=== PATIENT | male | born 1980 | race Caucasian/White ===

== ENCOUNTER 2020-01-06 09:27 | Emergency (ER) | payer OTHER ==
[2020-01-06 09:34] VITALS: BP 146/78; PULSE 109; TEMP 100.9; BMI 35.5
[2020-01-06] MEDS ORDERED: ACETAMINOPHEN 500 MG TABLET (FP) PO ONE (10:41)
[2020-01-06] MEDS ORDERED: ACETAMINOPHEN 500 MG TABLET (FP) ONE (10:44)
--- NOTE | 2020-01-06 10:46 | PDOC ---
History of Present Illness - General Chief Complaint: Cold Symptoms Stated Complaint: FLU SYS Time Seen by Provider: 01/06/20 10:02 History Source: Patient Exam Limitations: No Limitations - History of Present Illness Initial Comments: 01/06/20 10:41 39-year-old male denies past medical history presents complaining of dry cough, nasal congestion, body aches, subjective fever, chills, sore throat x 30 hours. Patient denies chest pain, shortness of breath, recent sick contacts, recent travel, rash, vomiting, diarrhea, abdominal pain or any other complaints. ROS: As above PE: GENERAL: well-appearing, NAD HEAD: NCAT EYES: Pupils equal, round and reactive to light, sclera anicteric, conjunctiva clear ENT: Normal bilateral ear canals, normal bilateral TMs, pharynx: no erythema, no exudate, uvula midline NECK: supple, no lymphadenopathy CHEST: nontender RESP: clear, no w/r/r CARDIO: rrr, no m/g/r ABD: +BS, soft, nontender, non distended BACK: no midline spinal ttp, no CVAT EXTREMITIES: Normal range of motion, no edema NEUROLOGICAL: Normal speech, normal gait SKIN: Warm, Dry Is this a multiple visit Asthma Patient?: No Past History - Past Medical History Allergies/Adverse Reactions: Allergies Allergy/AdvReac Type Severity Reaction Status Date / Time No Known Allergies Allergy Verified 01/06/20 09:34 Home Medications: Ambulatory Orders NK [No Known Home Medication] 01/06/20 COPD: No Psychiatric Problems: No - Immunization History Immunization Up to Date: No - Psycho Social/Smoking Cessation Hx Smoking History: Never smoked Have you smoked in the past 12 months: No Information on smoking cessation initiated: No Hx Alcohol Use: No Drug/Substance Use Hx: No *Physical Exam - Vital Signs Last Vital Signs Temp Pulse Resp BP Pulse Ox 100.9 F H 109 H 16 146/78 97 01/06/20 09:31 01/06/20 09:31 01/06/20 09:31 01/06/20 09:31 01/06/20 09:31 Medical Decision Making - Medical Decision Making 01/06/20 11:10 39-year-old male with no past medical history presents complaining of viral-like symptoms x30 hours. Well-appearing Clear lungs P.o. acetaminophen Awaiting influenza swab results 01/06/20 11:37 Influenza negative Note for work provided Supportive care instructions given Discharge - Discharge Information Problems reviewed: Yes Clinical Impression/Diagnosis: Viral illness Condition: Stable Disposition: HOME - Admission No - Follow up/Referral - Patient Discharge Instructions Additional Instructions: Rest, hydrate, alternate between acetaminophen 975 every 6 hours and ibuprofen 600 mg every 6 hours as needed Return to ED if you develop shortness of breath, chest pain, nausea, vomiting, diarrhea or any worsening symptom - Post Discharge Activity Work/Back to School Note: Back to Work
== END 2020-01-06 11:52 | disposition home or self-care (01) ==
LOC: JERFT 09:27
DX: B34.9 Viral infection, unspecified (principal)
CPT/HCPCS: 87804; 99282-25